=== PATIENT | female | born 1965 | race Caucasian/White ===

== ENCOUNTER 2023-05-03 10:14 | Outpatient (AMB) | payer OTHER, SELFPAY ==
--- NOTE | 2023-05-03 10:37 | MHC.OFFVIS ---
Intake Intake Visit Reasons: low back pain Patient Advocate Required: No Allergies No Known Allergies [No Known Allergies*] Allergy (Unverified 12/10/19 15:20) Assessment & Plan Assessment & Plan (1) Cervical myelopathy: Code(s): G95.9 - Disease of spinal cord, unspecified Plan: This is a 58-year-old female self-referred for evaluation of multiple symptoms. She has had chronic low back pain since 1995 when she was carrying her 1st child. That is gotten progressively worse through the years. She will have pain that radiates down her left leg in an L4 distribution. More recently however, over the last few years she started to develop bilateral hand numbness as well as numbness of her feet. She also reports that she will have urinary in fecal incontinence sporadically. She has to wear adult diapers in order to protect against this. It has been very concerning as it has been going on for number of years. She had a urogynecologist workup and was told that everything was fine. She had a colonoscopy was told everything was okay. She also reports pain radiating down her left arm. She was told years ago she has cervical stenosis but that it was not bad enough to need surgery. She is here today for evaluation of all these issues. She does take morphine and Soma to help with her back pain. PMH: History of diabetes, her last A1c was 6, history of chronic pain, depression, hypertension, high cholesterol, bilateral carpal tunnel surgery. She denies any history of heart attacks, strokes, kidney disorders, bleeding disorders. Social hx: She does not smoke, she quit about a year ago. She quit alcohol 10 years ago. Denies any liver disease or hepatitis related to drinking. Denies any recreational drugs. Medications: Pravastatin, atenolol, metformin, bupropion, duloxetine, gabapentin, Soma, morphine Allergies: None Physical exam: Patient has diffuse weakness on the left side of her body which showed rate as 4-5, right side is normal strength. She has hyperreflexia with Beard's sign bilaterally in the upper extremities, bilateral hyperreflexia in lower extremities as well. Imaging review: She has a lumbar MRI with her today which shows mild degenerative disc disease with a slight spondylolisthesis at L4-5 but no nerve impingement. Impression: 58-year-old female presenting to the office for evaluation of a host of symptoms, most concerning is left arm pain, bilateral hand numbness, foot numbness with incontinence. She has hyperreflexia on her exam so I am going to send her for an urgent cervical MRI to rule out myelopathy. It is well-known SSRIs can cause hyperreflexia, but in light of all of her other symptoms I think we can justify the MRI. Once I have a chance to evaluate her cervical spine, we can focus on her back. She does have a spondylolisthesis at L4-5 grade 1. Eventually we will need to get flexion-extension x-rays on this to evaluate but I need to rule out myelopathy before we can go any further. Thank you for allowing us to care for your patient. The total time spent with this visit with this patient was 45 minutes reviewing history, physical exam, lumbar MRI imaging review, and implementation of treatment plan or further diagnostic testing Ze Hung MD,PhD [facility] Orders: Orders MR cervical spine wo con Today G95.9 - Disease of spinal cord, unspecified Coding Level of Care Code New Pt Level 4 (74026) Diagnoses Cervical myelopathy G95.9
== END 2023-05-03 11:02 | disposition home or self-care (01) ==
PROVIDERS: PCP Nurse Practitioner Family; Visit Provider Physician Assistant
DX: G95.9 Disease of spinal cord, unspecified (principal)
CPT/HCPCS: 99204

== ENCOUNTER → 2023-05-03 10:14 | Outpatient (BNVA) | payer OTHER, SELFPAY | PROVIDERS: PCP Nurse Practitioner Family; Visit Provider Physician Assistant | DX: G95.9 Disease of spinal cord, unspecified (principal) | CPT/HCPCS: 99202 ==

== ENCOUNTER → 2023-06-19 12:56 | Outpatient (BNV) | payer OTHER, SELFPAY | PROVIDERS: PCP Nurse Practitioner Family; Visit Provider Internal Medicine Cardiovascular Disease | DX: R94.31 Abnormal electrocardiogram [ECG] [EKG] (principal) | CPT/HCPCS: 93010 ==

== ENCOUNTER 2023-06-27 07:25 | Day surgery (SDC) | payer OTHER, SELFPAY ==
--- NOTE | 2023-06-19 | ECG_ITS ---
Test Reason : preop Blood Pressure : / mmHG Vent. Rate : 060 BPM Atrial Rate : 060 BPM P-R Int : 170 ms QRS Dur : 074 ms QT Int : 418 ms P-R-T Axes : -01 -09 010 degrees QTc Int : 418 ms Normal sinus rhythm Minimal voltage criteria for LVH, may be normal variant ( R in aVL ) T wave abnormality, consider anterior ischemia Abnormal ECG When compared with ECG of 15-MAY-2018 18:34, Minimal criteria for Inferior infarct are no longer Present T wave inversion now evident in Anterior leads Referred By: Alaina Banks Electronically Signed By:John Menjivar
[2023-06-19 12:15] VITALS: BP 122/72; PULSE 74; RESP 18; O2SAT 98; BMI 35.4
--- NOTE | 2023-06-19 12:40 | P.CONAN_ITS ---
Documented by User: Alaina Banks NP 06/20/23 10:08 HPI - Anesthesia Eval Consult details Narrative: 58yo F for C4-5 Ant Cerv Discectomy w/ fusion, 06/27/23 No recent illness No CP/SOB with minimal activity r/t pain. Able to do one flight of stairs Chronic opiates. Morphine 15mg BID. ARMANDO. No CPAP. Never recommended DM. Metformin only. Does not check BS at home. 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 prescription opiate use Hypersomnia with sleep apnea Hypercholesteremia Former smoker DDD (degenerative disc disease), lumbar Chronic pain syndrome Spinal stenosis in cervical region Cervical radiculopathy Adjustment disorder with mixed emotional features Arthritis History of DVT (deep vein thrombosis) (~1997) Frequent falls Ambulates with cane Numbness and tingling in both hands Elevated cholesterol HTN (hypertension) Depression Chronic pain Diabetes Family History Family history of problems with anesthesia: No Surgical History Surgical History Hx of colonoscopy Hx of hand surgery History of bilateral carpal tunnel release History of Problems with Anesthesia: No Social History Social History Are you a primary reproductive healthcare assistant to a significant other at home: No Do you presently have visiting nurse or other home services: No Patient Tobacco Use Status: Former Tobacco user Use of substances other than those prescribed or required for medical reasons: No Have you been hit, kicked, punched, or otherwise hurt by someone within the past year? If so, by whom?: No Are you DNR?: No Advance Directives: No Advance Directives Information Provided: Yes Advance Directives on File: No Recently lost weight without trying: No Eating poorly because of decreased appetite: No Patient : No : No Poor oral hygiene: Yes (upper dentures full set) Meds Allergies Allergy/AdvReac Type Severity Reaction Status Date / Time No Known Allergies Allergy Verified 06/12/23 16:12 [No Known Allergies*] Home Medications ?Medication ?Instructions ?Recorded ?Confirmed ?Last Taken ?Type atenolol 25 mg tablet 25 mg PO DAILY 06/12/23 06/12/23 Unknown History bupropion HCl 300 mg 24 hr tablet, 300 mg PO DAILY 06/12/23 06/12/23 Unknown History extended release carisoprodol 350 mg tablet 350 mg PO TID 06/12/23 06/19/23 06/27/23 History duloxetine 60 mg capsule,delayed 120 mg PO DAILY 06/12/23 06/12/23 Unknown History release gabapentin 600 mg tablet 1,200 mg PO TID 06/12/23 06/12/23 06/27/23 History metformin 500 mg tablet 500 mg PO DAILY 06/12/23 06/12/23 Unknown History morphine 15 mg tablet,extended 15 mg PO Q12H 06/12/23 06/12/23 06/27/23 History release pravastatin 40 mg tablet 40 mg PO DAILY 06/12/23 06/12/23 Unknown History Exam Height,Weight and Vital Signs: Height 5 ft 4 in Weight 93.44 kg Last Vital Signs Pulse 74 06/19/23 12:15 Resp 18 06/19/23 12:15 BP 122/72 06/19/23 12:15 Pulse Ox 98 06/19/23 12:15 O2 Del Method Room Air 06/19/23 12:15 Pertinent Lab Results Pertinent Lab Results: Lab Results 06/19/23 Range/Units 13:00 WBC 7.4 (4.8-10.8) X10*3/uL RBC 4.14 L (4.20-5.50) X10*6/uL Hgb 13.4 (12.0-16.0) g/dl Hct 39.6 (37.0-47.0) % MCV 95.7 (80.0-98.0) fL MCH 32.4 (27.0-33.0) pg MCHC 33.8 (31.0-35.0) g/dl RDW 12.3 (11.0-16.0) % Plt Count 303 (160-400) X10*3/uL MPV 9.3 L (9.4-12.3) fL Absolute Nucleated RBC 0.000 (0.0-0.012) X10*3/uL Nucleated RBC % (auto) 0.0 (0.0-0.2) /100WBC Sodium 140 (135-145) mmol/L Potassium 4.2 (3.3-5.1) mmol/L Chloride 105 (96-108) mmol/L Carbon Dioxide 28 (22-29) mmol/L Anion Gap 11 L (12-20) BUN 14 (9-16) mg/dL Creatinine 0.89 (0.5-1.4) mg/dL Estim Creat Clear Calc 78.2 Estimated GFR > 60 Random Glucose 107 (60-115) mg/dL Estimat Average Glucose 117 mg/dL Hemoglobin A1c % 5.7 (<6.0) % Calcium 9.3 (8.4-10.2) mg/dL Narrative Narrative: EKG 05/2023 Vent. Rate : 060 BPM Atrial Rate : 060 BPM P-R Int : 170 ms QRS Dur : 074 ms QT Int : 418 ms P-R-T Axes : -01 -09 010 degrees QTc Int : 418 ms Normal sinus rhythm Minimal voltage criteria for LVH, may be normal variant ( R in aVL ) T wave abnormality, consider anterior ischemia Abnormal ECG When compared with ECG of 15-MAY-2018 18:34, Minimal criteria for Inferior infarct are no longer Present T wave inversion now evident in Anterior leads Reviewed with Dr Kruse Airway Mallampati Class: II TM Dist: >3cm Neck ROM: Limited Denture: Upper Loose/Missing/Broken Teeth: Yes (All lower teeth remain and stable) Heart: RRR Lungs: CTAB Assessment and Plan Assessment Anesthesia Assessment: Anesthesia Plan Discussed and PAT Visit Final Anesthetic Review Family History of Problems with Anesthesia: No History of Problems with Anesthesia: No Documented by User: Henrique Kruse MD 06/27/23 08:11 [facility] Past Medical History Medical History Weakness Vitamin B12 deficiency Sleepwalking disorder RBD (REM behavioral disorder) Post herpetic neuralgia Sleep apnea Obese Back pain long term care phlebotomist prescription opiate use Hypersomnia with sleep apnea Hypercholesteremia Former smoker DDD (degenerative disc disease), lumbar Chronic pain syndrome Spinal stenosis in cervical region Cervical radiculopathy Adjustment disorder with mixed emotional features Arthritis History of DVT (deep vein thrombosis) (~1997) Frequent falls Ambulates with cane Numbness and tingling in both hands Elevated cholesterol HTN (hypertension) Depression Chronic pain Diabetes Surgical History Surgical History Hx of colonoscopy Hx of hand surgery History of bilateral carpal tunnel release Social History Social History Are you a primary reproductive healthcare assistant to a significant other at home: No Do you presently have visiting nurse or other home services: No Patient Tobacco Use Status: Former Tobacco user Use of substances other than those prescribed or required for medical reasons: No Have you been hit, kicked, punched, or otherwise hurt by someone within the past year? If so, by whom?: No Are you DNR?: No Advance Directives: No Advance Directives Information Provided: Yes Advance Directives on File: No Recently lost weight without trying: No Eating poorly because of decreased appetite: No Patient : No : No Poor oral hygiene: Yes (upper dentures full set) Meds Allergies Allergy/AdvReac Type Severity Reaction Status Date / Time No Known Allergies Allergy Verified 06/12/23 16:12 [No Known Allergies*] Home Medications ?Medication ?Instructions ?Recorded ?Confirmed ?Last Taken ?Type atenolol 25 mg tablet 25 mg PO DAILY 06/12/23 06/12/23 Unknown History bupropion HCl 300 mg 24 hr tablet, 300 mg PO DAILY 06/12/23 06/12/23 Unknown History extended release carisoprodol 350 mg tablet 350 mg PO TID 06/12/23 06/19/23 06/27/23 History duloxetine 60 mg capsule,delayed 120 mg PO DAILY 06/12/23 06/12/23 Unknown History release gabapentin 600 mg tablet 1,200 mg PO TID 06/12/23 06/12/23 06/27/23 History metformin 500 mg tablet 500 mg PO DAILY 06/12/23 06/12/23 Unknown History morphine 15 mg tablet,extended 15 mg PO Q12H 06/12/23 06/12/23 06/27/23 History release pravastatin 40 mg tablet 40 mg PO DAILY 06/12/23 06/12/23 Unknown History Assessment and Plan Final Anesthetic Review NPO: Yes ASA Class: III Final Preanesthetic Review: No Changes in Pt Med Stat, Meds/Allgs Chart Reviewed, Consent Obtained/Reviewed and Anes Risks/Benef Reviewed Patient Risk: Intermediate Procedure Risk: Intermediate Assessment/Block/Sedation in SS: Assess/Block/Sedation-SS Anesthetic Plan Anesthetic Plan: GA Disposition: Standard PACU
[2023-06-19 14:17] LABS: Estimated Average Glucose 117 mg/dL; Hemoglobin A1c % 5.7 % (<6.0)
[2023-06-19 14:20] LABS: Hematocrit 39.6 % (37.0-47.0); Hemoglobin 13.4 g/dl (12.0-16.0); Mean Corpuscular HGB Conc 33.8 g/dl (31.0-35.0); Mean Corpuscular Hemoglobin 32.4 pg (27.0-33.0); Mean Corpuscular Volume 95.7 fL (80.0-98.0); Mean Platelet Volume 9.3 fL (9.4-12.3); Platelet Count 303 X10*3/uL (160-400); Red Blood Count 4.14 X10*6/uL (4.20-5.50); Red Cell Distribution Width 12.3 % (11.0-16.0); White Blood Count 7.4 X10*3/uL (4.8-10.8)
[2023-06-19 14:37] LABS: Anion Gap 11 (12-20); Blood Urea Nitrogen 14 mg/dL (9-16); Calcium 9.3 mg/dL (8.4-10.2); Carbon Dioxide 28 mmol/L (22-29); Chloride 105 mmol/L (96-108); Creatinine Clr Calc Pharmacy 78.2; Estimated Glomerular Filt Rate > 60; Glucose Random 107 mg/dL (60-115); Potassium 4.2 mmol/L (3.3-5.1); Sodium 140 mmol/L (135-145)
[2023-06-27] VITALS (9 sets, daily range): BP systolic 105–152; BP diastolic 64–88; PULSE 75–80; RESP 10–18; TEMP 36.4–36.6; O2SAT 93–100; BMI 36.6
--- NOTE | ~2023-06-27 | FL_ITS ---
EXAMINATION: XR FLUOROSCOPY WITH IMAGES CLINICAL INFORMATION: C4-5 ACDF COMPARISON: None available. TECHNIQUE: Fluoroscopy Supervised By: Carlos Alberto. Fluoroscopy Time: 5.3 seconds. Cumulative Dose: 0.3 mGy. DAP: 0.1 Gycm2. Images: 2. FINDINGS: Images demonstrate ACDF hardware at C4-5. FL/FL guidance in OR IMPRESSION: Intraoperative fluoroscopy guidance for cervical spine surgery
--- NOTE | 2023-06-27 07:04 | P.HPSUR_ITS ---
Pre-Procedural Eval Section A - 24 Hr Update-Section A only Date of Service: 06/27/23 The patient is an INPATIENT: No Changes since office visit: No Cold of Flu in the past 2 weeks, No New Medical Problems, No Changes in Medication and No Patient answered all questions The patient has been examined within 24 hours of the surgical procedure. The History & Physical has been completed within 30 days and I have reviewed it.: No Section B - Complete if H&P > 30 days Chief Complaint: Disease of spinal cord, Allergies: Allergies Allergy/AdvReac Type Severity Reaction Status Date / Time No Known Allergies Allergy Verified 06/12/23 16:12 [No Known Allergies*] Review of Systems Sugical H&P ROS: Negative: Constitution, Cardiovascular, Respiratory, Neurological, Psychiatric, Hem-Onc, Allergic/Immunologic, Gastrointestinal, Genitourinary, Musculoskeletal, Integumentary, Endocrine and Eyes/Ears/Nose/Th roat Exam Surgical H&P Exam: Not Evaluated: HEENT, Not Evaluated: Heart, Not Evaluated: Lungs, Not Evaluated: Extremities, Not Evaluated: Abdomen, Not Evaluated: Skin and Not Evaluated: Neurological Plan Diagnosis/Plan: Unchanged C4-5 ACDF Time Spent With Patient Time: Total time managing care of this patient today _6___ minutes.
[2023-06-27 07:50] LABS: Glucose, Whole Blood 151 mg/dL (60-115)
[2023-06-27] MEDS: Lactated Ringers 1,000 ML 100 ML IVCONT (08:14)
[2023-06-27] MEDS: methocarbamoL 750 MG TABLET PO (08:14)
--- NOTE | 2023-06-27 10:18 | PM.DS ---
DS: Providers Provider Date of Service: 06/27/23 Date of discharge: 06/27/23 Primary care physician: Kaila Bonds NP Admitting clinician: Woody Hung DS: Diagnosis Discharge Diagnosis (1) Cervical myelopathy: Status: Acute DS: Summary Time Attestation Discharge Coordination Time (in mins): 5 Quality: Safe Use of Opioids Does Pt have an Active Cancer Diagnosis on the Problem List?: No Quality: Stroke Does the patient have a stroke diagnosis?: No Physical Exam Vital Signs: Vital Signs: Last Vital Signs Temp 97.8 F 06/27/23 07:54 Pulse 75 06/27/23 07:54 Resp 18 06/27/23 07:54 BP 105/67 06/27/23 07:54 Pulse Ox 96 06/27/23 07:54 O2 Del Method Room Air 06/27/23 07:54 BMI result Body Mass Index 36.6 DS: Data Data Completed and Pending Labs on day of discharge: Laboratory Results - last 24 hr 06/27/23 07:46 POC Glucose 151 H Discharge Plan Discharge Patient Disposition: Home, Self-Care Referrals: Kaila Bonds NP [Primary Care Provider] - 1 Week Discharge Medications: New docusate sodium [Colace] 100 mg capsule 100 mg PO BID Qty: 20 0RF oxycodone 5 mg tablet 5 mg PO Q4H PRN (Reason: pain) Qty: 30 0RF Rx Instructions: Partial Fill upon patient request. Continued metformin 500 mg tablet 500 mg PO DAILY gabapentin 600 mg tablet 1,200 mg PO TID pravastatin 40 mg tablet 40 mg PO DAILY atenolol 25 mg tablet 25 mg PO DAILY morphine 15 mg Tablet Extended Release 15 mg PO Q12H bupropion HCl 300 mg tablet extended release 24 hr 300 mg PO DAILY duloxetine 60 mg capsule,delayed release(DR/EC) 120 mg PO DAILY carisoprodol 350 mg tablet 350 mg PO TID Discharge Orders: Discharge Order (Routine); Ordered 06/27/23 Ordered By: Ze Wilson Diet: Advance to usual diet Activity on Discharge: As tolerated Activity Restrictions/Additional Instructions: After your spinal surgery we ask you to observe the following restrictions/guidelines: Activity: It is normal to feel some discomfort as you increase your activity, but that will improve with time. We ask you avoid heavy lifting or acitivities that cause pain. As a general rule, 8lbs is a safe limit for lifting right after surgery. Walk as much as you feel comfortable but not to exhaustion. You will feel extra tired the first few days after surgery. Stay well hydrated. It is OK to walk up and down stairs You may return to driving when you are off narcotics (such as vicodin, oxycodone, dilaudid, etc), and you are back to normal functional capacity. If you have any concerns please check with office before driving. Return to work is specific to each patient and each surgery, so please speak with your doctor/PA at first follow up. Please bring paperwork such as FMLA at that time if you need it filled out. Medications: For optimum pain control, it is best to start with a combination of 500 mg of Tylenol every 4 hours with 600 mg of Motrin every 8 hours, and use narcotics as needed in between for breakthrough pain. We cannot give you any pain medication because you just filled a rx for morphine instant release, so you will have to use that for post op pain if needed If you are on a narcotic, it is a good idea to take a stool softener such as colace or senna to avoid constipation If you take blood thinner such as aspirin, Plavix, Coumadin, Effient, Eliquis etc for conditions such as Afib, DVT, Pulmonary embolus, coronary disease, stents etc please speak with your surgeon about specific details as to when you can resume these medications. You can resume NSAIDs on post op day 1 (eg: Motrin, Naproxen, etc). Follow up: Please call the office, , after surgery to arrange a 3 week follow up for wound check. Wound Care: You may remove your dressing on the first day after surgery. ?You may ?leave open to air. Please do not remove the steri strips underneath. they will fall off on their own in one week. IT IS NORMAL FOR THE WOUND TO OOZE OR BE BLOODY FOR A FEW DAYS AFTER SURGERY. ?IF THIS HAPPENS JUST PLACE NEW DRESSING OVER IT TO AVOID STAINING CLOTHES. You may shower on post op day # 1 We ask that you do not let the water soak the wound. If it does get wet, just towel dry lightly. Please do not scrub your incision or place any type of chemical/ointment on the wound. No tub baths, pools or jacuzzis for one month. If you have any leaking or redness from your wound, or fevers, please call office Print Language: British
--- NOTE | 2023-06-27 11:11 | W.PM.OPN ---
Operative Note Operative Note Date of Service: 06/27/23 Narrative: Preoperative Diagnosis: Cervical myelopathy and radiculopathy Procedure: C4-C5 Anterior discectomy, arthrodesis and implantation cage ; C4-C5 anterior instrumentation ; local autograft; microscope Informed Consent was obtained for this operation. I have explained the nature, purpose and benefits of the operation. I have discussed the risks and benefit of the operation including possible complications or adverse events with patient/family. Alternative(s) were discussed with the patient with their relative benefits and risks as well as the consequences of not accepting the operation were included in obtaining consent. Surgeon: KAREN ACOSTA MD, PHD Procedure Assisted By: giancarlo Russell Description of Procedure: This patient is suffering from cervical myelopathy and left cervical radiculopathy. She was offered an anterior diskectomy and fusion C4-C5 for spinal cord compression and bilateral C5 nerve root compression. The procedure complications were explained. The patient was consented. The patient was brought to the operating room and endotracheally intubated. The patient was put in supine position with slight extension of the neck. Prep and drape was done followed by timeout. A mid cervical incision was made followed by opening of the platysma. The prevertebral fascia was reached following the natural planes while the physician assistant reading teacher provided manual retraction. The prevertebral fascia was opened to expose the disc space. A spinal needle was placed in the disk space to confirm the correct level with xray. The longus colli muscles were released bilaterally and a self retaining retractor was inserted. Two [place] pins were placed in the C4 and C5 vertebral bodies and distraction was give over the interspace. The discectomy was completed toward the posterior annulus of the disc. The microscope was brought in. The remainder of the discectomy was completed. The posterior ligament was opened and resected to expose the underlying dura. Osteophytes were resected from the body of C4 and C5 to decompress the spinal cord and saved for autograft. Bilateral foraminotomies were done. The endplates were prepared after which a 6 mm cage filled with autograft was inserted into the disc space. A separate attached plate was locked down with 2 x 12 mm screws as anterior instrumentation. Final x-rays in AP and lateral projection showed a satisfactory position of the implant. The physician assistant reading teacher took over. The [place] Ward pin was removed. Hemostasis was done. He closed the incision in 2 layers with a 3-0 Vicryl. Steri-Strips used to approximate incision. An OpSite with Tegaderm was used to cover the incision. All sponge and needle counts were correct. Patient was extubated and transported in stable is to recovery room. Anesthesia: General Estimated Blood Loss (ml): 10 mL Duration of Surgery: 45 minutes Postoperative Plan: Discharge home Complications: None
[2023-06-27] MEDS: oxyCODONE HCl Immed Release 5 MG TABLET PO (11:34)
[2023-06-27] MEDS: HYDROmorphone HCl 0.5 MG/0.5 ML SYRINGE IVPUSH ×2 (11:35→11:53)
== END 2023-06-27 13:50 | disposition home or self-care (01) ==
PROVIDERS: Nurse Practitioner; PCP Nurse Practitioner Family; Visit Provider Neurological Surgery
PROC: (CPT 22551; principal; 2023-06-27 09:30)
DX: G95.9 Disease of spinal cord, unspecified (principal); M48.02 Spinal stenosis, cervical region; M54.12 Radiculopathy, cervical region; G89.29 Other chronic pain; M54.50 Low back pain, unspecified; I10 Essential (primary) hypertension; E11.9 Type 2 diabetes mellitus without complications; E78.00 Pure hypercholesterolemia, unspecified; F32.A Depression, unspecified; Z79.891 Long term (current) use of opiate analgesic; Z79.899 Other long term (current) drug therapy; Z79.84 Long term (current) use of oral hypoglycemic drugs; Z87.891 Personal history of nicotine dependence
CPT/HCPCS: 22551; 22853; 20936; 22845; 36415; 80048; 82947; 83036; 85027; 93005; C1713; J0131; J0690; J1170; J2250; J2704; J3010

== ENCOUNTER → 2023-06-27 07:25 | Outpatient (BNV) | payer OTHER, SELFPAY | PROVIDERS: PCP Nurse Practitioner Family; Visit Provider Neurological Surgery | DX: M50.10 Cervical disc disorder with radiculopathy, unspecified cervical region (principal) | CPT/HCPCS: 20936; 22551; 22845; 22853; 99499 ==

== ENCOUNTER 2023-07-18 09:49 | Outpatient (AMB) | payer OTHER, SELFPAY ==
--- NOTE | 2023-07-18 09:55 | A.SPINEOV_ITS ---
Intake Visit Reasons: 1st post op Intake Note: Ms. Ibarra is here today for 1st post-op appointment. Licensed Occupational Therapist Required: No Allergies No Known Allergies [No Known Allergies*] Allergy (Verified 07/18/23 09:56) Assessment & Plan Assessment & Plan (1) S/P cervical spinal fusion: Code(s): Z98.1 - Arthrodesis status Category: Surgical Plan Procedure: C4-5 ACDF Dorothea comes in today for her 1st postoperative visit. She reports that she does feel better than she did preoperatively, however still has quite a bit of posterior neck pain. She also continues to have some radiculopathy into her left upper extremity, however is unsure if this is confounded by her left shoulder injury/issue. She asked several questions regarding postoperative healing course which I answered to the best of my ability. We discussed some restrictions including weight limits and activities. Overall she appears to be healing well but is likely dealing with quite a bit of postoperative inflammation. No new neurological deficits. Patient is able to ambulate well, rises from a seated position without difficulty. Incision site is closed, well healing, with no signs of drainage. We will follow-up with the patient in 6 weeks for her 2nd postoperative visit. At that time we will get x-rays to review with the patient. Wesly Hung MD,PhD [facility] Coding Level of Care Code Global (92990) Diagnoses S/P cervical spinal fusion Z98.1
== END 2023-07-18 10:21 | disposition home or self-care (01) ==
PROVIDERS: PCP Nurse Practitioner Family; Visit Provider Physician Assistant
DX: Z98.1 Arthrodesis status (principal)
CPT/HCPCS: 99024

== ENCOUNTER → 2023-07-18 09:49 | Outpatient (BNVA) | payer OTHER, SELFPAY | PROVIDERS: PCP Nurse Practitioner Family; Visit Provider Physician Assistant | DX: Z48.89 Encounter for other specified surgical aftercare (principal); Z98.1 Arthrodesis status | CPT/HCPCS: 99212 ==

== ENCOUNTER 2023-08-28 13:10 | Outpatient (REF) | payer OTHER, SELFPAY | END 2023-08-28 13:11 | disposition home or self-care (01) | LOC: HO.HOSX 13:10 | PROVIDERS: Visit Provider Physician Assistant | DX: Z13.89 Encounter for screening for other disorder (principal) ==

== ENCOUNTER 2023-09-09 08:49 | Outpatient (AMB) | payer OTHER, SELFPAY ==
--- NOTE | 2023-09-09 08:59 | HO.SPINEOV ---
Intake Visit Reasons: 2nd post op with xrays Intake Note: Ms. Ibarra is here today for 2nd post op with xrays. Horse Race Timer Required: No Allergies No Known Allergies [No Known Allergies*] Allergy (Verified 07/18/23 09:56) Assessment & Plan Assessment & Plan (1) S/P cervical spinal fusion: Code(s): Z98.1 - Arthrodesis status Category: Surgical Plan Dorothea is a pleasant 58-year-old female who comes in today for a subsequent follow-up visit after having a C4-5 ACDF completed for cervical myelopathy. She reports she has been healing very well since her surgery, and states she has had resolution of many of her initial presentation symptoms. She has had no issues with incontinence since her surgery, reports that the numbness/tingling in her bilateral hands has significantly improved, and states that her left-sided weakness feels much better than it previously did. We discussed cervical instrumentation, postoperative healing course, and subsequent follow-up visits. I answered all of her questions to the best of my ability. On exam, the patient's anterior incision site is closed and well healed. She continues to exhibit bilateral Beard's and hyperreflexia, but these are not expressly expected to resolve. She continues to ambulate with the assistance of 4 pronged cane. Yarelis reported she would like to follow up with us again in 2 months to discuss her low back concerns. After reviewing some of her previous notes it appears she had a lumbar spondylolisthesis which did not appear particularly concerning. I will review her imaging during her next visit and see if there is anything that could correlate with her symptoms. Wesly Hung MD,PhD [facility] Orders: Orders XR cervical spine 4V Today Z98.1 - Arthrodesis status Coding Level of Care Code Global (06196) Diagnoses S/P cervical spinal fusion Z98.1
== END 2023-09-09 09:24 | disposition home or self-care (01) ==
PROVIDERS: PCP Nurse Practitioner Family; Visit Provider Physician Assistant
DX: Z98.1 Arthrodesis status (principal)
CPT/HCPCS: 99024

== ENCOUNTER → 2023-09-09 08:49 | Outpatient (BNVA) | payer OTHER, SELFPAY | PROVIDERS: PCP Nurse Practitioner Family; Visit Provider Physician Assistant | DX: Z98.1 Arthrodesis status (principal) ==

== ENCOUNTER 2023-09-09 08:50 | Outpatient (REF) | payer OTHER, SELFPAY ==
--- NOTE | ~2023-09-09 | XR_ITS ---
EXAMINATION: XR CERVICAL SPINE CLINICAL INFORMATION: Status post arthrodesis COMPARISON: None available. TECHNIQUE: 3 views of the cervical spine were obtained. FINDINGS: 3 lateral views of cervical spine reveals no instability on flexion and extension views of well-positioned arthrodesis at the level of C4-C5 there is narrowing of C6-C7 and C7-T1 intervertebral disc space. Pedicles are preserved. Soft tissues unremarkable. XR/XR cervical spine 4V IMPRESSION: Well-positioned hardware
== END 2023-09-09 08:51 | disposition home or self-care (01) ==
LOC: HO.HOSX 08:50
PROVIDERS: Visit Provider Physician Assistant
DX: Z48.89 Encounter for other specified surgical aftercare (principal); Z98.1 Arthrodesis status
CPT/HCPCS: 72050; 99212

== ENCOUNTER 2023-11-12 13:16 | Outpatient (AMB) | payer OTHER, SELFPAY ==
--- NOTE | 2023-11-12 13:19 | HO.SPINEOV ---
Intake Visit Reasons: 3rd post op Intake Note: Ms. Ibarra is here for her 3rd post-op visit. Management Information Systems Director Required: No Allergies No Known Allergies [No Known Allergies*] Allergy (Verified 11/12/23 13:29) Assessment & Plan Assessment & Plan (1) S/P cervical spinal fusion: Code(s): Z98.1 - Arthrodesis status Category: Medical Plan Dorothea is a pleasant 58-year-old female who comes in today for a subsequent follow-up visit after having a C4-5 ACDF completed in June of this year. To recap, she was initially referred to our office for her low back pain but was found to be myelopathic on exam. A cervical MRI was then ordered and severe compression was found in the cervical spine. Unfortunately, since her surgery Yarelis is reported continued radicular pain in her left upper extremity shooting down from her neck into her left shoulder/triceps area. In addition to this she reports shooting pains down the dorsal aspect of her forearm into her wrist/hand. Dorothea was doing much better during her last office visit, but states she has begun falling again in his concerned that she is regressing. In addition to this, Dorothea reports that she has had severe low back pain with radiculopathy since her initial consult and would like to have her back issues addressed. When describing the shooting radicular pain she runs her hand over her left lateral/anterior thigh, over her left knee, into her left medial calf, to the top of her left foot. She has been on morphine, fentanyl, oxycodone, Percocet, and gabapentin all in an effort to treat her back pain. She no longer takes any of these medications (aside from the gabapentin) as she feels they were not helpful and only made her feel intoxicated. She acknowledges that her cervical issues are continuing, but is primarily expressing concerns regarding her terrible back pain. She feels as though her quality of life has been severely diminished as a result of her low back pain, in his seeking any possible solution we may have to aid with this. She has had a plethora of cortisone injections in her low back, completed at the pain management clinic on [facility] in [facility]. She has also been to physical therapy several times for this. On examination, the patient has 4/5 strength with plantar flexion/knee extension/knee flexion. She has 5/5 strength with dorsiflexion and hip flexion. Her upper extremity exam is 5/5. She continues to have bilateral Beard's. (-) clonus, (-) hyperreflexia, (-) Babinski's bilaterally, (-) straight leg raise. I would like to do a few things in order to best determine the route/next steps for Dorothea. I would like for her to obtain the MRI disc of her lumbar spine and drop it off at the office so we can review this again. I would also like to send her for a repeat cervical MRI she continues to have radicular pain and some myelopathic reflexes on examination. It is also quite concerning that she has begun to have balance issues. In addition to this I will be having her medical laboratory technologist obtain her injection records for the lumbar spine from the pain management Clinic noted above. After I am able to review her MRI I will discuss her case with Dr. Hung and call her thereafter. Wesly Hung MD,PhD [facility] Orders: Orders MR cervical spine wo con Today Z98.1 - Arthrodesis status Coding Level of Care Code Est Pt Level 4 (50634) Diagnoses S/P cervical spinal fusion Z98.1
== END 2023-11-12 14:08 | disposition home or self-care (01) ==
PROVIDERS: PCP Nurse Practitioner Family; Visit Provider Physician Assistant
DX: Z98.1 Arthrodesis status (principal)
CPT/HCPCS: 99214

== ENCOUNTER → 2023-11-12 13:16 | Outpatient (BNVA) | payer OTHER, SELFPAY | PROVIDERS: PCP Nurse Practitioner Family; Visit Provider Physician Assistant | DX: Z98.1 Arthrodesis status (principal) | CPT/HCPCS: 99212 ==

== ENCOUNTER 2023-12-25 07:26 | Outpatient (REF) | payer OTHER, SELFPAY ==
--- NOTE | ~2023-12-25 | MR_ITS ---
EXAMINATION: MR CERVICAL SPINE WITHOUT CONTRAST CLINICAL INFORMATION: Postoperative medial neurological symptoms with continued myelopathic reflexes COMPARISON: Cervical spine x-ray on 09/09/2023 TECHNIQUE: MRI of the cervical spine was obtained using routine sequences without contrast. FINDINGS: The visualized cervical vertebrae are intact with normal alignment. No focal bone lesion with abnormal signal can be seen. Evaluation of the intervertebral discs show: C2/C3: Intervertebral disc height is normal, with normal T2 signal. No focal disc herniation is seen. Bilateral C2-C3 neural foramina are patent. Bilateral apophyseal joints are intact with normal alignment. C3/C4: Intervertebral disc height is normal, with normal T2 signal. No focal disc herniation is seen. Bilateral C3-C4 neural foramina are patent. Bilateral apophyseal joints are intact with normal alignment. C4/C5: ACDF, interbody spinal fusion, fixation with integrated interbody fusion device. Bilateral C4-C5 neural foramina are severely stenosed. There is moderate spinal stenosis with AP diameter of the spinal canal reduced to 8.8 mm. Bilateral apophyseal joints are intact with normal alignment. C5/C6: Intervertebral disc height is normal, with normal T2 signal. Mild posterior disc protrusion is seen. Bilateral C5-C6 neural foramina are markedly stenosed. There is moderate spinal stenosis with AP diameter of the spinal canal reduced to 8.1 mm. Bilateral apophyseal joints are intact with normal alignment. C6/C7: Intervertebral disc height is markedly decreased, with moderate loss of T2 signal. Mild posterior disc protrusion is seen. Bilateral C6-C7 neural foramina are markedly stenosed. There is mild spinal stenosis with AP diameter of the spinal canal reduced to 9.1 mm. Bilateral apophyseal joints are intact with normal alignment. C7/T1: Intervertebral disc height is normal, with normal T2 signal. No focal disc herniation is seen. Bilateral C7-T1 neural foramina are patent. Bilateral apophyseal joints are intact with normal alignment. Cervical spinal cord is normal in position and signal. MR/MR cervical spine wo con IMPRESSION: 1. ACDF, interbody spinal fusion, fixation with integrated interbody fusion device at C4-C5. 2. Moderate spinal stenosis at C4-C5 and C5-C6. 3. Mild spinal stenosis at C6-C7. 4. Marked bilateral neural foraminal stenosis at C4-C5, C5-C6 and C6-C7. Electronically signed by: Rosa Maria Jones MD 12/25/2023 03:26 PM EDT RP
== END 2023-12-25 07:27 | disposition home or self-care (01) ==
LOC: HO.MRI 07:26
PROVIDERS: PCP Nurse Practitioner Family; Visit Provider Physician Assistant
DX: Z98.1 Arthrodesis status (principal)
CPT/HCPCS: 72141

== ENCOUNTER 2023-12-26 09:59 | Outpatient (REF) | payer OTHER, SELFPAY | END 2023-12-26 10:00 | disposition home or self-care (01) | LOC: HO.HOSX 09:59 | PROVIDERS: Visit Provider Physician Assistant | DX: Z13.89 Encounter for screening for other disorder (principal) ==

== ENCOUNTER 2024-01-13 10:44 | Outpatient (REF) | payer OTHER, SELFPAY | END 2024-01-13 10:45 | disposition home or self-care (01) | LOC: HO.HOSX 10:44 | PROVIDERS: PCP Nurse Practitioner Family; Visit Provider Physician Assistant | DX: M43.10 Spondylolisthesis, site unspecified (principal); M54.50 Low back pain, unspecified | CPT/HCPCS: 72110; 99212 ==

== ENCOUNTER 2024-01-13 10:44 | Outpatient (AMB) | payer OTHER, SELFPAY ==
--- NOTE | 2024-01-13 11:05 | A.SPINEOV_ITS ---
Intake Visit Reasons: [place] [facility] [place] Int[place] Note: Mrs. Ibarra is here to F/u on her xrays. Sergeant Of Corrections Required: No Allergies No Known Allergies [No Known Allergies*] Allergy (Verified 11/12/23 13:29) Assessment & Plan Assessment & Plan (1) Lumbago: Code(s): M54.50 - Low back pain, unspecified Category: Medical Plan Dorothea comes in today for a subsequent follow-up visit after having a C4-5 ACDF completed by our service. To recap during her last office visit she wished to address her low back pain. When describing her pain she states that it starts in her low back then travels down her left lateral/anterior thigh, over her left knee, into her left medial calf, to the top of her left foot. She had an MRI completed at [facility] this year, which showed significant facet hypertrophy & degeneration in the lumbar spine, with a small listhesis seen at L4-5. The x-ray imaging confirmed slight accentuation of the lithesis with flexion / extension. We attempted to obtain her records from [facility] pain management, who have not responded to us and have not sent her records. We discussed the spectrum of treatment options. I do not believe she requires any neurosurgical intervention in her lumbar spine and would most benefit from pain management interventions. We had Dr. Syed in the office seeing patients today, and he was able to review the patient's MRI and meet her. He is going to have the patient go to [facility] pain management in person and get a procedure list to review what interventions she has had in the past. He tentatively discussed the possibility of stimulation versus denervation to help treat her pain. I placed a referral for his office and she will be following up with him in regards. In addition to this, Yarelis continues to report issues with neck pain. She feels her pain has stayed the same with little improvement since her surgery. I did review her cervical MRI which shows evidence of degeneration below her level of fusion (C5-6). Again her main complaint at this time is her low back not her neck. I encouraged her that she may continue to heal all the way up to 1 year out from surgery and should follow-up with Dr. Hung in the next few months if she continues to have cervical neck pain and would like to discuss the possibility of subsequent surgery. Due to her lack of overall improvement from the notably worst level at C4-5 I am not sure if subsequent surgery would provide her any significant relief. This would be better evaluated by the attending neurosurgeon. Wesly Hung MD,PhD [facility] Orders: Referrals Pain Management Referral M54.50 - Low back pain, unspecified Coding Level of Care Code Est Pt Level 3 (56312) Diagnoses Lumbago M54.50
== END 2024-01-13 12:08 | disposition home or self-care (01) ==
PROVIDERS: PCP Nurse Practitioner Family; Visit Provider Physician Assistant
DX: M54.50 Low back pain, unspecified (principal)
CPT/HCPCS: 99213

== ENCOUNTER 2024-11-13 10:09 | Outpatient (AMB) | payer OTHER, SELFPAY ==
--- OUTSIDE RECORDS SUMMARY | 2024-11-13 10:13 | XMS_ITS | Clinical Summary ---
Author Organization [facility] Address [address] [place] [address] Phone Care Team Providers Care Cath Lab Radiological Technologist Name Role Phone Alfredo Wynne MD Primary Care Provider [phone] Allergies Active Allergy Reactions Criticality Noted Date Comments Fentanyl 01/29/2019 Does not like the way it makes her feel, was topical delivery, patch Medications atenolol (TENORMIN) 25 MG tablet Take 25 mg by mouth daily. Active Ca cit-D3-mag#11-z atd-goyn-rbg-iam r (CALTRATE 600+D) 600 mg calcium- 800 unit-50 mg Tab Take 1 tablet by mouth daily. Active DULoxetine (CYMBALTA) 60 MG capsule Take 60 mg by mouth daily. Active gabapentin (NEURONTIN) 600 MG tablet Take 600 mg by mouth 3 (three) times a day. Active metFORMIN (GLUCOPHAGE) 1000 MG tablet Take 1,000 mg by mouth 2 (two) times a day with meals. Active multivitamins capsule Take 1 capsule by mouth daily. Active omeprazole (PRILOSEC) 20 mg TbEC Take 20 mg by mouth daily before breakfast. Active pravastatin (PRAVACHOL) 40 MG tablet Take 40 mg by mouth daily. Active carisoprodol (SOMA) 350 MG tablet Take 350 mg by mouth 3 (three) times a day as needed. Active cyanocobalamin, vitamin B-12, 100 MCG tabletIndicatio ns:unsure of exact dosage Take 100 mcg by mouth daily. Indications: unsure of exact dosage Active cholecalciferol (VITAMIN D3) 25 MCG (1,000 unit) tablet Take 1,000 Units by mouth daily. Active morphine (MSIR) 15 MG tablet Take 15 mg by mouth every 4 (four) hours as needed for pain (specific location in comments). {PARTIAL FILL:61438} Active Social History Tobacco Use Types Packs/Day Years Used Date Smoking Tobacco: Former Cigarettes 1 20 Smokeless Tobacco: Never Alcohol Use Standard Drinks/Week Comments Not Currently 0 (1 standard drink = 0.6 oz pur e alcohol) Education Answer Date Recorded Are you interested in more education? Not on troy e 07/20/2022 Are you concerned about learning? Not on file 07/20/2022 No 07/20/2022 No 07/20/2022 Digital Access Answer Date Recorded No 08/21/2022 No 08/21/2022 No 08/21/2022 Reliable internet access at home? Not on file 08/21/2022 Device with a working camera? Not on file Comments No Sex and Gender Information Value Date Recorded Sex Assigned at Not on file Legal Sex Female 12:49 PM EDT Gender Identity Not on file Sexual Orientation Not on file Last Filed Vital Signs Vital Sign Reading Time Taken Comments Blood Pressure 128/75 02/03/2019 8:12 AM EST Pulse 82 02/03/2019 7:06 AM EST Temperature 36.2 C (97.2 F) 02/03/2019 7:06 AM EST Respiratory Rate 16 02/03/2019 8:12 AM EST Oxygen Saturation 97% 02/03/2019 8:12 AM EST Inhaled Oxygen Concentration - - Weight 103 kg (227 lb) 01/29/2019 10:16 AM EST Height 162.6 cm (5' 4 ) 01/29/2019 10:16 AM EST Body Mass Index 38.96 01/29/2019 10:16 AM EST Plan of Treatment Health Maintenance Due Date Last Done Comments Adult Td,Tdap Booster 1965 CREATININE LEVEL 1967 LIPID PANEL 1967 DEPRESSION SCREENING 1979 SMOKING Hx and SMOKELESS TOB ACCO SCREENING 01/31/1980 HEPATITIS C SCREENING 1985 HIV ONE-TIME SCREENING (18-6 5 YEARS) 1985 PAP SMEAR 01/31/1988 MAMMOGRAM 2007 COLOGUARD 01/31/2012 FIT TEST 01/31/2012 FOBT 01/31/2012 SIGMOIDOSCOPY 01/31/2012 VIRTUAL COLONOSCOPY 01/31/2012 PNEUMOCOCCAL VACCINES (50+ y ears) (1 of 1 - PCV) 2017 ZOSTER VACCINES (2 of 2) 01/22/2018 11/27/2017 COVID-19 VACCINE (2 - 2023-2 5 season) 2023 06/15/2020 COLONOSCOPY 02/03/2029 02/03/2019 COLORECTAL CANCER SCREENING 02/03/2029 HEPATITIS A VACCINES Aged Out No long er eligible based on patient's age to complete this topic HIB VACCINES Aged Out No longer eligi ble based on patient's age to complete this topic MENINGOCOCCAL VACCINES (ACWY) Aged Out No longer eligible based on patient's age to complete this topic MENINGOCOCCAL VACCINES (B) Aged Out N o longer eligible based on patient's age to complete this topic Medical Devices Not on file Procedures Procedure Name Priority Date/Time Associated Diagnosis Comments ENDOSCOPY, COLON 02/03/2019 7:15 AM EST from Last 3 Months or Most Recently Relevant to Health Maintenance Results * ENDOSCOPY, COLON (02/03/2019 7:15 AM EST) Narrative Transcriptions Hector Arellano MD - 02/03/2019 7:15 AM EST Patient Name: Dorothea Ibarra Attending MD:: HECTOR ARELLANO MD Procedure Date: 02/03/2019 7:15 AM Date of : 1965 Age: 54 Admit Type: Outpatient Gender: Female Room: [place] [address] Referring MD: Alfredo Wynne MD Exam Type: Colonoscopy Indications: Screening for colorectal malignant neoplasm, This isthe patient's first colonoscopy Medications: Monitored Anesthesia Care Procedure: Informed consent was obtained from the patient after discussion of the indications, limitations,alternatives, benefits, and risks of the procedure. Risksspecifically discussed include but are not limited to medication reactions, missed lesions, bleeding, perforation, orthe need for emergent surgery. Throughout the procedure, the patient's blood pressure, pulse, end-tidal CO2, and oxygen saturations were monitored continuously. The Olympus adult variable colonoscope CF-[id number] #7 was introduced through the anus and advanced to the cecum, identified by the appendiceal orifice, ileocecal valveand palpation. The colonoscopy was somewhat difficult dueto inadequate bowel prep. The patient tolerated theprocedure fairly well. The quality of the bowel preparation was evaluated using the BBPS ([place] Bowel PreparationScale) with scores of: Right Colon = 1 (portion of mucosaseen, but other areas not well seen due to staining, residual stool and/or opaque liquid), Transverse Colon = 1(portion of mucosa seen, but other areas not well seen due to staining, residual stool and/or opaque liquid) and Left Colon = 1 (portion of mucosa seen, but other areas not well seen due to staining, residual stool and/or opaque liquid). The total BBPS score equals 3. The quality ofthe bowel preparation was inadequate. Complications: No immediate complications. Estimated blood loss:None. Findings: The perianal and digital rectal examinations werenormal. Pertinent negatives include normal sphincter tone. A few small-mouthed diverticula were found in the descending colon. Extensive amounts of semi-liquid semi-solid stool was found in the entire colon, interfering withvisualization. The exam was otherwise without abnormality on directand retroflexion views. Impression: - Preparation of the colon was inadequate. - Diverticulosis in the descending colon. - Stool in the entire examined colon. - The examination was otherwise normal on direct and retroflexion views. - No specimens collected. Recommendation: - Repeat colonoscopy in 1 year because the bowel preparation was suboptimal with a 2 day prep. HECTOR ARELLANO MD 02/03/2019 8:00:49 AM This report has been signed electronically. Number of Addenda: 0 Note Initiated On: 02/03/2019 7:15 AM Procedure Code(s): --- Professional --- 35356, Colonoscopy, flexible; diagnostic, including collection of specimen(s) by brushing or washing, when performed (separateprocedure) --- Technical --- 73726, Colonoscopy, flexible; diagnostic, including collection of specimen(s) by brushing or washing, when performed (separateprocedure) Diagnosis Code(s): --- Professional --- Z12.11, Encounter for screening for malignant neoplasm of colon K57.30, Diverticulosis of large intestine without perforation orabscess without bleeding --- Technical --- Z12.11, Encounter for screening for malignant neoplasm of colon K57.30, Diverticulosis of large intestine without perforation orabscess without bleeding CPT copyright 2018 [employer]. All rights reserved. The codes documented in this report are preliminary and upon help desk internship reviewmay be revised to meet current compliance requirements. [address] [place] [id number] Alfredo Wynne MD GI PROCEDURE ORDERABLES F inal Result from Last 3 Months or Most Recently Relevant to Health Maintenance Insurance [place] [id number] [place] [address] [place] [id number] [place] [address] [place] [address] [place] [address] [place] [address] [place] [address] [place] [address] [place] [address] [facility] [address] Care Teams Cath Lab Radiological Technologist Relationship Specialty Start Date End Date Alfredo Wynne MD PCP - General Internal Medicine 12/24/18 Additional Source Comments The information contained in this document represents components of the legal health record. It is not the complete legal health record.[facility]
--- OUTSIDE RECORDS SUMMARY | 2024-11-13 10:13 | XMS_ITS | Patient Health Record ---
Author Organization [facility] Address [address] [facility] [place] [address] Care Team Providers Care Calender Operator Name Role Phone Alfredo Wynne MD Primary Care Provider Unavailab Yolanda Dias Unavailable [phone] Reason For Referral No Information Medications Medication SIG (Take, Route, Frequency, Duration) Notes Start Date End Date Status Cymbalta 125mg Activ e Urea-C40 40 % 1 application to affected area as needed Externally Once a day; Duration: 30 days 05/01/2018 Active Womens Multivitamin Active Low-Dose Aspirin 81mg daily Active metFORMIN HCl 1000 MG 1 tablet with a me al Orally Once a day; Duration: 30 day(s) Active fentaNYL 25 MCG/HR 1 patch to skin Transdermal Not-Taking vitamin D Active Iron Supplement Acti ve Vitamin B 12 Active Atenolol 25 MG 1 tablet Orally Once a day; Duration: 30 day(s) Active PriLOSEC 25mg Active Venlafaxine HCl Acti ve Pravastatin Sodium 10 MG 1 tablet Orally Once a day; Duration: 30 day(s) Active Immunizations Vaccine Route Administration Date Status Comme nts Influenza Unknown 10/23/2017 Administered Social History Tobacco Use: Social History Observation Description Date Details (start date - stop date) Former Smoker NA - NA Tobacco Use/Smoking Question Answer Notes Are you a: former smoker Additional Findings: Tobacco Non-User Current no n-smoker Alcohol Screen Question Answer Notes Did you have a drink containing alcohol in the p ast year? No Points 0 Interpretation Negative Tobacco use other than smoking: Question Answer Notes Are you an other tobacco user? No Problems Problem Type SNOMED Code ICD Code Onset Dates Problem Status W/U Status Risk Notes Problem Polyneuropathy due to type 2 diabetes mellitus (887677173) Type 2 diabetes mellitus with diabetic polyneuropathy (E11.42) Active confirmed Plan Of Treatment Pending Test Test Name Order Date [id number] NAIL, 6 OR MORE 05/01/2018 [id number] NAIL, 6 OR MORE 07/17/2018 [id number] SKIN LESIONS, OVER 4 07/18/19 [id number] SKIN LESIONS, OVER 4 05/01/1950,[id number] TENDON SHEATH/LIGAMENT 0 05/01/201803114,[id number] TENDON SHEATH/LIGAMENT 0 06/12/201817901,[id number] TENDON SHEATH/LIGAMENT 0 07/17/2018 Insurance Providers Payer Name Payer Address Payer Phone Subscriber Number Group Number Insured Name Patient Relationship to Insured Coverage Start Date Coverage End Date Claims [facility] [employer] [address] [address] [place] [address] [id number] Dorothea Ibarra Self - patient is the insured Medical (General) History Medical History History ICD Code Anemia Anxiety Arthritis Back,Hip,and Knee pain Cholesterol Depression Diabetic High blood pressure Numbness Reflux ( GERD) Sciatica Surgical History Surgery Date(Month/Year) arthritis in thumb both hands 2015, 2016
--- NOTE | 2024-11-13 10:15 | MHC.OFFVIS ---
Vital Signs 11/13/24 10:17 Height 5 ft 4 in Weight 210 lb BMI 36.0 BP 132/79 Blood Pressure Location Lt brachial Position Sitting Respiration 16 Pulse 82 Pulse Source Pulse Oximeter Pulse Oximetry (%) 95 Oxygen Delivery Method Room Air Intake Visit Reasons: Ongoing back pain/follow up with Dr Syed. Life Trainer Required: No Accompanied by: Spouse Allergies No Known Allergies (No Known Allergies*) Allergy (Verified 11/13/24 10:18) Medication List - Last Reconciled 11/13/24 by Karina Sandhu LPN atenolol 25 mg PO DAILY bupropion HCl XL 300 mg PO DAILY buspirone 10 mg PO BID carisoprodol 350 mg PO TID duloxetine 120 mg PO DAILY meloxicam 15 mg PO DAILY metformin 500 mg PO DAILY omeprazole 20 mg PO DAILY pravastatin 40 mg PO DAILY prazosin 1 mg PO BEDTIME pregabalin 75 mg PO TID vitamin B complex 1 tab PO DAILY HPI HPI Ongoing back pain/follow up with Dr Syed.: Details: History of Present Illness The patient is a 59-year-old female presenting with chronic back pain. She reports a history of scoliosis diagnosed during grade school, which was not followed up on, and sciatica that began during her in 1995. The back pain is described as severe, with a 9/10 intensity, and is exacerbated by movement and weather changes. The patient has undergone multiple interventions, including cervical spine surgery (ACDF) in June 2023, which provided some relief but did not resolve her neck pain completely. She has also had multiple surgeries on her hands and injections in various joints, including her shoulder, hands, back, and hips. Despite these interventions, she continues to experience significant pain and functional limitations, including difficulty carrying objects and frequent falls. The patient has tried various pain management strategies, including physical therapy, massage therapy, cortisone injections, and home traction units, all of which provided only temporary relief. She is currently on Lyrica for nerve pain and meloxicam for inflammation, but reports persistent daily pain. Her pain significantly interferes with her daily activities and quality of life, leading to emotional distress. Pain Description - Onset: Chronic, with a history of scoliosis and sciatica - Quality: Severe, stabbing pain - Location: Lower back, radiating to legs and arms - Exacerbating factors: Movement, weather changes - Relieving factors: Temporary relief from physical therapy, massage, and cortisone injections - Interference: Affects sleep, daily activities, and ability to care for herself Physical Exam - Musculoskeletal: Positive straight leg raise bilaterally Results - Imaging: MRI showing lumbar spondylolisthesis at L4-5 with nerve root compression Pain Management - Affect: Pain causes emotional distress and impacts quality of life - Analgesia: Currently on Lyrica and meloxicam, with persistent daily pain - Adverse Effects: No specific adverse effects reported from current medications - Activities of Daily Living: Pain interferes with sleep and daily activities - Aberrant Drug Related Behaviors: No aberrant behaviors reported [facility] Medical History (Updated 11/17/24 @ 11:51 by Leandro Syed MD) Weakness Vitamin B12 deficiency Sleepwalking disorder RBD (REM behavioral disorder) Post herpetic neuralgia Sleep apnea Obese Back pain senior living prescription opiate use Hypersomnia with sleep apnea Hypercholesteremia Former smoker DDD (degenerative disc disease), lumbar Chronic pain syndrome Spinal stenosis in cervical region Cervical radiculopathy Adjustment disorder with mixed emotional features Arthritis History of DVT (deep vein thrombosis) (~1997) Frequent falls Ambulates with cane Numbness and tingling in both hands Elevated cholesterol HTN (hypertension) Depression Chronic pain Diabetes Surgical History (Updated 07/18/23 @ 10:22 by MASOUD Penny) Hx of colonoscopy Hx of hand surgery History of bilateral carpal tunnel release Social History Are you a primary resident care assistant to a significant other at home: No Do you presently have visiting nurse or other home services: No Patient Tobacco Use Status: Former Tobacco user Physical Exam Vital Signs: Last Vital Signs Pulse 82 11/13/24 10:17 Resp 16 11/13/24 10:17 BP 132/79 11/13/24 10:17 Pulse Ox 95 11/13/24 10:17 Oxygen Delivery Method Room Air 11/13/24 10:17 BMI result Body Mass Index 36.0 Assessment & Plan Assessment & Plan (1) Lumbar radicular pain: Code(s): M54.16 - Radiculopathy, lumbar region Category: Medical Plan Plan - Schedule L4-5 intralaminar epidural steroid injection for lumbar spondylolisthesis and nerve root compression. - Consider lumbar medial branch blocks if epidural steroid injection does not provide sufficient relief. - Prescribe nabumetone 500 mg twice daily as an alternative to meloxicam. - Continue Lyrica for nerve pain management. - Advise against taking nabumetone three days prior to the scheduled injection. Patient was informed and verbally consented to the use of an ambient scribe for clinic note documentation during this visit. Discussion Notes I discussed with the patient the option of an L4-5 intralaminar epidural steroid injection to address her lumbar spondylolisthesis and nerve root compression. We also considered lumbar medial branch blocks if the epidural injection does not provide adequate relief. I explained the need to avoid nabumetone three days before the injection and discussed the continuation of Lyrica for nerve pain management. Patient Instructions - Schedule and attend the L4-5 epidural steroid injection appointment. - Do not take nabumetone three days before the injection. - Continue taking Lyrica as prescribed for nerve pain. - Monitor pain levels and report any changes or concerns. Medications: New nabumetone 500 mg PO BID 60 tabs 0RF Coding Level of Care Code New Pt Level 4 (34608) Diagnoses Lumbar radicular pain M54.16
[2024-11-13 10:17] VITALS: BP 132/79; PULSE 82; RESP 16; O2SAT 95; BMI 36.0
== END 2024-11-13 10:53 | disposition home or self-care (01) ==
LOC: HO.PMC 10:09
PROVIDERS: PCP Nurse Practitioner Family; Visit Provider Internal Medicine
DX: M54.16 Radiculopathy, lumbar region (principal)
CPT/HCPCS: 99204

== ENCOUNTER → 2024-11-13 10:09 | Outpatient (BNVA) | payer OTHER, SELFPAY | PROVIDERS: PCP Nurse Practitioner Family; Visit Provider Internal Medicine | DX: M54.16 Radiculopathy, lumbar region (principal) | CPT/HCPCS: 99202 ==

== ENCOUNTER 2025-01-14 06:18 | Outpatient (REF) | payer OTHER, SELFPAY ==
--- NOTE | ~2025-01-14 | FL_ITS ---
EXAMINATION: FL GUIDANCE ONLY HISTORY: M54.16 - Radiculopathy, lumbar region COMPARISON: None available. TECHNIQUE: Fluoroscopy time: 0.1 minute. Cumulative Dose: 3.30 mGy. DAP: 36.52 uGym2 Images: 1. FINDINGS: A single fluoroscopic spot film of the lumbar spine in the AP projection demonstrates a needle in place at approximately the L4-5 level. FL/FL guidance in treatment room IMPRESSION: Fluoroscopy during procedure. Please see procedure report for additional information. Electronically signed by: Del Pastrana MD 01/14/2025 03:12 PM EDT
--- OUTSIDE RECORDS SUMMARY | 2025-01-14 06:20 | XMS_ITS | Encounter Summary ---
Author Organization [facility] Address [address] [place] [address] Phone Care Team Providers Care Coat Finisher Name Role Phone Alfredo Wynne MD Primary Care Provider [phone] Encounter Details Date Type Department Care Team (Late st Contact Info) Description 02/03/2019 Procedure Pass [facility] Endoscopy Admitting Dept Virtual Department [address] [place] [address] Social History Tobacco Use Types Packs/Day Years Used Date Smoking Tobacco: Former Cigarettes 1 20 Smokeless Tobacco: Never Alcohol Use Standard Drinks/Week Comments Not Currently 0 (1 standard drink = 0.6 oz pur e alcohol) Comments No Sex and Gender Information Value Date Recorded Sex Assigned at Not on file Legal Sex Female 12:49 PM EDT Gender Identity Not on file Sexual Orientation Not on file documented as of this encounter Plan of Treatment Not on file documented as of this encounter Visit Diagnoses Not on filedocumented in this encounter Care Teams Coat Finisher Relationship Specialty Start Date End Date Alfredo Wynne MD PCP - General Internal Medicine 12/24/18 documented as of this encounter Additional Source Comments The information contained in this document represents components of the legal health record. It is not the complete legal health record.[facility]
--- OUTSIDE RECORDS SUMMARY | 2025-01-14 06:20 | XMS_ITS | Clinical Summary ---
Author Organization [facility] Address [address] [place] [address] Phone Care Team Providers Care Tobacco Sorter Name Role Phone Alfredo Wynne MD Primary Care Provider [phone] Allergies Active Allergy Reactions Criticality Noted Date Comments Fentanyl 01/29/2019 Does not like the way it makes her feel, was topical delivery, patch Medications atenolol (TENORMIN) 25 MG tablet Take 25 mg by mouth daily. Active Ca cit-D3-mag#11-z zhl-rugs-hcj-iam r (CALTRATE 600+D) 600 mg calcium- 800 [...] for pain (specific location in comments). {PARTIAL FILL:57560} Active Social History Tobacco Use Types Packs/Day [...] ZOSTER VACCINES (2 of 2) 01/22/2018 11/27/2017 INFLUENZA VACCINE (#1) 2024 11/27/2017 COVID-19 VACCINE (2 - 2024-2 6 season) 2024 06/15/2020 COLONOSCOPY 02/03/2029 02/03/2019 COLORECTAL CANCER SCREENING 02/03/2029 RSV VACCINE (1 - 1-dose 75+ series) 2042 HEPATITIS A VACCINES Aged Out No long [...] 02/03/2019 7:15 AM EST Patient Name: Dorothea Crespo MD:: HECTOR ARELLANO MD Procedure Date: 02/03/2019 7:15 AM Date of : 1965 Age: 54 Admit Type: Outpatient Gender: Female Room: [place] [address] Referring MD: Alfredo Wynne MD Exam Type: [...] monitored continuously. The Olympus adult variable colonoscope [id number] #7 was introduced through the anus and advanced to the cecum, identified by the appendiceal orifice, ileocecal valveand palpation. The colonoscopy was somewhat difficult dueto inadequate bowel prep. The patient tolerated theprocedure fairly well. The quality of the bowel preparation was evaluated using the BBPS ([place] Bowel PreparationScale) with scores of: Right Colon [...] 7:15 AM Procedure Code(s): --- Professional --- 35430, Colonoscopy, flexible; diagnostic, including collection of specimen(s) by brushing or washing, when performed (separateprocedure) --- Technical --- 65245, Colonoscopy, flexible; diagnostic, including collection of specimen(s) by brushing or washing, when performed (separateprocedure) Diagnosis Code(s): --- Professional --- Z12.11, Encounter for screening for malignant neoplasm of colon K57.30, Diverticulosis of large intestine without perforation orabscess without bleeding --- Technical --- Z12.11, Encounter for screening for malignant neoplasm of colon K57.30, Diverticulosis of large intestine without perforation orabscess without bleeding CPT copyright 2018 [employer]. All rights reserved. The codes documented in this report are preliminary and upon locomotive pipe fitter reviewmay be revised to meet current compliance requirements. [address] [place] [address] Alfredo Wynne MD GI PROCEDURE ORDERABLES F inal Result from Last 3 Months or Most Recently Relevant to Health Maintenance [place] [address] [place] [address] [place] [address] [place] [address] [place] [address] [place] [address] [place] [id number] [place] [address] [place] [address] Care Teams Tobacco Sorter Relationship Specialty Start Date End Date Alfredo Wynne MD PCP - General Internal Medicine 12/24/18 Additional Source Comments The information contained in this document represents components of the legal health record. It is not the complete legal health record.[facility]
== END 2025-01-14 06:19 | disposition home or self-care (01) ==
LOC: CF 06:18
PROVIDERS: Visit Provider Internal Medicine
DX: M54.16 Radiculopathy, lumbar region (principal)
CPT/HCPCS: 62321; J2003; J3301; Q9967

== ENCOUNTER 2025-01-14 10:30 | Outpatient (AMB) | payer OTHER, SELFPAY ==
[2025-01-14 10:43] VITALS: BP 112/68; PULSE 76; RESP 16; O2SAT 94
--- NOTE | 2025-01-14 10:43 | MHC.OFFVIS ---
Vital Signs 01/14/25 10:43 01/14/25 11:49 BP 112/68 110/70 Blood Pressure Location Lt brachial Lt brachial Position Sitting Sitting Respiration 16 16 Pulse 76 73 Pulse Source Pulse Oximeter Pulse Oximeter Pulse Oximetry (%) 94 95 Oxygen Delivery Method Room Air Room Air Intake Visit Reasons: L4-L5 Interlaminar [place] Accompanied by: Spouse Allergies No Known Allergies (No Known Allergies*) Allergy (Verified 01/14/25 10:44) Medication List - Last Reconciled 01/14/25 by Karina Sandhu LPN atenolol 25 mg PO DAILY bupropion HCl XL 300 mg PO DAILY buspirone 10 mg PO BID carisoprodol 350 mg PO TID duloxetine 120 mg PO DAILY metformin 500 mg PO DAILY nabumetone 500 mg PO BID omeprazole 20 mg PO DAILY pravastatin 40 mg PO DAILY prazosin 1 mg PO BEDTIME pregabalin 75 mg PO TID vitamin B complex 1 tab PO DAILY HPI HPI L4-L5 Interlaminar [place]: Details: Patient presents for scheduled procedure. Denies any recent cough, cold, infection, fever or other significant changes in medical history since last office visit. [facility] Medical History (Updated 11/17/24 @ 11:51 by Leandro Syed MD) Weakness Vitamin B12 deficiency Sleepwalking disorder RBD (REM behavioral disorder) Post herpetic neuralgia Sleep apnea Obese Back pain penitentiary prescription opiate use Hypersomnia with sleep apnea Hypercholesteremia Former smoker DDD (degenerative disc disease), lumbar Chronic pain syndrome Spinal stenosis in cervical region Cervical radiculopathy Adjustment disorder with mixed emotional features Arthritis History of DVT (deep vein thrombosis) (~1997) Frequent falls Ambulates with cane Numbness and tingling in both hands Elevated cholesterol HTN (hypertension) Depression Chronic pain Diabetes Surgical History (Updated 07/18/23 @ 10:22 by MASOUD Penny) Hx of colonoscopy Hx of hand surgery History of bilateral carpal tunnel release Social History Are you a primary health care coach to a significant other at home: No Do you presently have visiting nurse or other home services: No Patient Tobacco Use Status: Former Tobacco user Physical Exam Vital Signs: Last Vital Signs Pulse 73 01/14/25 11:49 Resp 16 01/14/25 11:49 BP 110/70 01/14/25 11:49 Pulse Ox 95 01/14/25 11:49 Oxygen Delivery Method Room Air 01/14/25 11:49 Office Procedures AMB Joint Injection/Aspiration Joint Injection/Aspiration Details: Interlaminar epidural steroid injection, L4/5, Left parasaggital After obtaining written consent, pre-procedure blood pressure and heart rate were stable and recorded in the nursing record. The patient was placed in the prone position. The lumbar area was widely prepped with chloraprep and draped in sterile fashion. Fluoroscopic guidance was used to identify the desired interlaminar space and for needle placement. Subcutaneous 0.5% lidocaine was used to anesthetize the skin overlying the target. A 20-gauge Busby needle was advanced to the epidural space using loss of resistance to saline technique under fluoroscopic AP and contralateral oblique views. There was no evidence of heme or CSF and no paresthesias were elicited with needle placement. Confirmation of epidural needle placement was performed with 1cc of omnipaque 180. Next 3 ml 0.5% lidocaine mixed with 80 mg triamcinilone was administered epidurally with no pain elicited on injection. The needle tract tubing was then cleared with 1 ml of 0.5% lidocaine. The needle was removed, skin cleansed and a sterile bandage was applied. The patient tolerated the procedure well and no complications were encountered. Following the procedure the patient's vital signs were stable. The patient was discharged home in good condition with post-procedural instructions. Time Out: Immediately prior to the procedure, the following was verbally confirmed that there is a signed consent form and that the correct patient, planned procedure, site and side are consistent with documentation and that necessary equipment and/or blood products are available prior to the start of the case. Complications: none EBL: <2 cc Coding 60053 - Caudal/Lumbar Epidural/Interlaminar with fluoroscopy Procedure code (CPT) selection complete Assessment & Plan Assessment & Plan (1) Lumbar radicular pain: Code(s): M54.16 - Radiculopathy, lumbar region Category: Medical Plan Patient is status post left parasagittal L4-5 interlaminar [place]. Patient tolerated procedure well and was discharged home in stable condition with discharge instructions. All questions were answered. We will follow-up via telephone or in clinic to assess response to therapy. A follow-up appointment was made during today's visit. Orders: Orders AMB Joint Injection/Aspiration Today Leandro Syed MD M54.16 - Radiculopathy, lumbar region FL guidance in treatment room Today Dayanna Davila APRN, LINK TRAINER MAINTENANCE MAN M54.16 - Radiculopathy, lumbar region Coding Level of Care Code Procedure Only Diagnoses Lumbar radicular pain M54.16 CPT Codes Coding - Joint 11: 54601 - Caudal/Lumbar Epidural/Interlaminar with fluoroscopy ([id number])
[2025-01-14 11:49] VITALS: BP 110/70; PULSE 73; RESP 16; O2SAT 95
== END 2025-01-14 11:50 | disposition home or self-care (01) ==
LOC: HO.PMCPRC 10:30
PROVIDERS: PCP Nurse Practitioner Family; Visit Provider Internal Medicine
DX: M54.16 Radiculopathy, lumbar region (principal)
CPT/HCPCS: 62321

== ENCOUNTER 2025-03-17 10:48 | Outpatient (AMB) | payer OTHER, SELFPAY ==
--- OUTSIDE RECORDS SUMMARY | 2025-03-17 10:52 | XMS_ITS | Encounter Summary ---
Author Organization [facility] Address [address] [place] [address] Phone Care Team Providers Care International Recruiter Name Role Phone Alfredo Wynne MD Primary Care Provider [phone] Encounter Details Date Type Department Care Team (Late st Contact Info) Description 02/03/2019 Procedure Pass [facility] Endoscopy Admitting Dept Virtual Department [address] [place] [address] Social History Tobacco Use Types Packs/Day Years [...] on filedocumented in this encounter Care Teams International Recruiter Relationship Specialty Start Date End Date Alfredo Wynne MD PCP - General Internal Medicine 12/24/18 documented as of this encounter Additional Source Comments The information contained in this document represents components of the legal health record. It is not the complete legal health record.[facility]
--- OUTSIDE RECORDS SUMMARY | 2025-03-17 10:52 | XMS_ITS | Clinical Summary ---
Author Organization [facility] Address [address] [place] [address] Phone Care Team Providers Care Asp Developer Name Role Phone Alfredo Wynne MD Primary Care Provider [phone] Allergies Active Allergy Reactions Criticality Noted Date Comments Fentanyl 01/29/2019 Does not like the way it makes her feel, was topical delivery, patch Medications atenolol (TENORMIN) 25 MG tablet Take 25 mg by mouth daily. Active Ca cit-D3-mag#11-z mvw-bhjj-sww-iam r (CALTRATE 600+D) 600 mg calcium- 800 [...] for pain (specific location in comments). {PARTIAL FILL:05811} Active Social History Tobacco Use Types Packs/Day [...] 54 Admit Type: Outpatient Gender: Female Room: [place] [address] Referring MD: Alfredo Wynne MD Exam Type: [...] monitored continuously. The Olympus adult variable colonoscope [id number] #7 was introduced through the anus and advanced to the cecum, identified by the appendiceal orifice, ileocecal valveand palpation. The colonoscopy was somewhat difficult dueto inadequate bowel prep. The patient tolerated theprocedure fairly well. The quality of the bowel preparation was evaluated using the BBPS ([place] Bowel PreparationScale) with scores of: Right Colon [...] 7:15 AM Procedure Code(s): --- Professional --- 55508, Colonoscopy, flexible; diagnostic, including collection of specimen(s) by brushing or washing, when performed (separateprocedure) --- Technical --- 15239, Colonoscopy, flexible; diagnostic, including collection of specimen(s) by brushing or washing, when performed (separateprocedure) Diagnosis Code(s): --- Professional --- Z12.11, Encounter for screening for malignant neoplasm of colon K57.30, Diverticulosis of large intestine without perforation orabscess without bleeding --- Technical --- Z12.11, Encounter for screening for malignant neoplasm of colon K57.30, Diverticulosis of large intestine without perforation orabscess without bleeding CPT copyright 2018 [employer]. All rights reserved. The codes documented in this report are preliminary and upon inpatient coder reviewmay be revised to meet current compliance requirements. [address] [place] [address] Alfredo Wynne MD GI PROCEDURE ORDERABLES F inal Result from Last 3 Months or Most Recently Relevant to [place] [address] [place] [address] [place] [address] [place] [address] [place] [address] [place] [address] [place] [id number] [place] [address] [place] [address] Care Teams Asp Developer Relationship Specialty Start Date End Date Alfredo Wynne MD PCP - General Internal Medicine 12/24/18 Additional Source Comments The information contained in this document represents components of the legal health record. It is not the complete legal health record.[facility]
--- OUTSIDE RECORDS SUMMARY | 2025-03-17 10:52 | XMS_ITS | Patient Health Record ---
Author Organization [facility] Address [address] [facility] [place] [address] Care Team Providers Care Security Flex Utility Officer Name Role Phone Alfredo Wynne MD Primary Care Provider Unavailab Yolanda Dias Unavailable [phone] Reason For Referral No Information Medications Medication [...] Polyneuropathy due to type 2 diabetes mellitus ([id number]) Type 2 diabetes mellitus with diabetic polyneuropathy (E11.42) Active confirmed Plan Of Treatment Pending Test Test Name Order Date [id number] NAIL, 6 OR MORE 05/01/2018 [id number] NAIL, 6 OR MORE 07/17/2018 [id number] SKIN LESIONS, OVER 4 07/18/19 [id number] SKIN LESIONS, OVER 4 05/01/1950,[id number] TENDON SHEATH/LIGAMENT 0 05/01/201810057,[id number] TENDON SHEATH/LIGAMENT 0 06/12/201883705,[id number] TENDON SHEATH/LIGAMENT 0 07/17/2018 Insurance Providers Payer Name Payer Address Payer Phone Subscriber Number Group Number Insured Name Patient Relationship to Insured Coverage Start Date Coverage End Date Claims [facility] [employer] [address] [address] [place] [address] [id number] Dorothea Ibarra Self - patient is the insured Medical (General) History Medical History History ICD Code Anemia Anxiety Arthritis Back,Hip,and Knee pain Cholesterol Depression Diabetic High blood pressure Numbness Reflux ( GERD) Sciatica Surgical History Surgery Date(Month/Year) arthritis in thumb both hands 2015, 2016
[2025-03-17 10:54] VITALS: BP 141/81; PULSE 74; RESP 16; O2SAT 93; BMI 36.0
--- NOTE | 2025-03-17 10:54 | MHC.OFFVIS ---
Vital Signs 03/17/25 10:54 Height 5 ft 4 in Weight 210 lb BMI 36.0 BP 141/81 H Blood Pressure Location Lt brachial Position Sitting Respiration 16 Pulse 74 Pulse Source Pulse Oximeter Pulse Oximetry (%) 93 Oxygen Delivery Method Room Air Intake Visit Reasons: Follow up from cortisone shot, ongoing pain. 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 Accompanied by: Spouse Allergies No Known Allergies (No Known Allergies*) Allergy (Verified 03/17/25 10:55) Medication List - Last Reconciled 03/17/25 by Karina Sandhu LPN atenolol 25 mg PO DAILY bupropion HCl XL 300 mg PO DAILY buspirone 10 mg PO BID carisoprodol 350 mg PO TID duloxetine 120 mg PO DAILY metformin 500 mg PO DAILY nabumetone 500 mg PO BID omeprazole 20 mg PO DAILY pravastatin 40 mg PO DAILY prazosin 1 mg PO BEDTIME pregabalin 75 mg PO TID vitamin B complex 1 tab PO DAILY HPI HPI Follow up from cortisone shot, ongoing pain.: Details: History of Present Illness The patient is a 60 year old female presenting for follow-up after a recent L4-5 epidural steroid injection for lumbar radicular pain. She reports that the injection provided complete pain relief for six days, but her symptoms have since returned to baseline. She describes pain primarily in the left lower back, with symptoms affecting both legs. The patient has a 30-year history of back problems, which began with sciatica during . She notes that her pain persists regardless of weight fluctuations and is aggravated by prolonged sitting or standing. Past interventions include various injections in her shoulder and hip, and she has a vague recollection of a possible sacroiliac joint injection. She uses topical pain lotions and creams, such as Biofreeze, at home. The patient also reports experiencing neck pain, which is worse upon waking in the morning and sometimes disturbs her sleep. She has had a lumbar MRI in the past, believed to be done at [facility] last year, as well as a prior neck MRI. Pain Description - Onset and Duration: The patient has experienced chronic back pain for 30 years, which started during . - Location: Pain is primarily located in the left lower back and also affects both legs, hip, and neck. - Character: The pain is described as radicular and as a pulling sensation. - Exacerbating Factors: Pain is worsened by bending backward, leaning forward (which causes it to radiate down the leg), prolonged sitting, and prolonged standing. - Relieving Factors: A recent L4-5 epidural steroid injection provided six days of pain relief. - Interference with Function: Neck pain sometimes keeps her up at night, and back pain limits her ability to sit or stand for long periods. Physical Exam - Back: Tenderness to palpation over the left lower back and left sacroiliac joint. - Range of Motion: Lumbar extension is limited and elicits left-sided back pain. - Lumbar flexion causes pain to radiate down the leg. - Special Tests: Left FLAQUITA test is positive for back and hip pain. - Left SI joint compression and thruster tests are positive. Results - MRI Lumbar Spine: A prior MRI was reportedly performed at [facility] last year; images and report were not available for review. Pain Management: - Analgesia: The patient received a recent L4-5 epidural steroid injection, which provided 6 days of complete pain relief. - She has also tried various topical pain lotions and creams, including Biofreeze. - Affect: The patient expresses frustration with her chronic pain, having dealt with it for 30 years. - Activities of Daily Living: Her pain limits her ability to sit or stand for prolonged periods. - Neck pain can also interfere with her sleep. 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 use Hypersomnia with sleep apnea Hypercholesteremia Former smoker DDD (degenerative disc disease), lumbar Chronic pain syndrome Spinal stenosis in cervical region Cervical radiculopathy Adjustment disorder with mixed emotional features Arthritis History of DVT (deep vein thrombosis) (~1997) Frequent falls Ambulates with cane Numbness and tingling in both hands Elevated cholesterol HTN (hypertension) Depression Chronic pain Diabetes Surgical History (Updated 07/18/23 @ 10:22 by MASOUD Penny) Hx of colonoscopy Hx of hand surgery History of bilateral carpal tunnel release Social History Are you a primary direct care specialist to a significant other at home: No Do you presently have visiting nurse or other home services: No Patient Tobacco Use Status: Former Tobacco user Physical Exam Vital Signs: Last Vital Signs Pulse 74 03/17/25 10:54 Resp 16 03/17/25 10:54 BP 141/81 H 03/17/25 10:54 Pulse Ox 93 03/17/25 10:54 Oxygen Delivery Method Room Air 03/17/25 10:54 BMI result Body Mass Index 36.0 Assessment & Plan Assessment & Plan (1) Chronic SI joint pain: Code(s): M53.3 - Sacrococcygeal disorders, not elsewhere classified; G89.29 - Other chronic pain Category: Medical (2) Lumbar spondylosis: Code(s): M47.816 - Spondylosis without myelopathy or radiculopathy, lumbar region Category: Medical Plan Plan Patient was informed and verbally consented to the use of an ambient scribe for clinic note documentation during this visit. 1. Lumbar Radiculopathy - The patient's temporary (6-day) relief from recent L4-5 [place]. - The plan includes obtaining and reviewing her lumbar spine MRI from last year to better assess the underlying anatomy. - Further interventions will be considered after reviewing the MRI and assessing her response to a planned sacroiliac joint injection. 2. Sacroiliac Joint Dysfunction - Physical exam findings, including tenderness over the left SI joint and positive provocative maneuvers (FLAQUITA, compression, thrust), are highly suggestive of SI joint mediated pain. - Authorization for a left therapeutic sacroiliac joint injection will be sought. - This procedure will serve as both a diagnostic and therapeutic intervention while awaiting review of her lumbar MRI. 3. Lumbar Spondylosis - This is considered a differential diagnosis, particularly given the patient's report of pain with extension and facet loading noted on exam. - Review of the lumbar spine MRI is crucial to evaluate for degenerative changes, including spondylosis and potential spondylolisthesis, before considering further interventions such as medial branch blocks. Discussion Notes I discussed with the patient that her recent epidural steroid injection provided only temporary relief. I explained that to determine the best long-term solution, we need to review her lumbar spine MRI, which was likely done at [facility] last year. Based on her physical exam findings, which are highly suggestive of sacroiliac (SI) joint pain, I recommended we proceed with a left therapeutic SI joint injection in the meantime. We will reassess her symptoms after the SI joint injection and after reviewing the MRI to determine the next steps in her treatment plan. The patient expressed understanding and agreed with this plan. Patient Instructions - Please contact [facility] to request that a copy of your lumbar spine MRI from last year be mailed to our office. - Our office will contact you to schedule a left sacroiliac (SI) joint injection. - We will follow up to discuss the results of the injection and your MRI scan to determine the next steps. Coding Level of Care Code Est Pt Level 3 (63257) Diagnoses Chronic SI joint pain M53.3; G89.29 Lumbar spondylosis M47.816
== END 2025-03-17 11:32 | disposition home or self-care (01) ==
LOC: HO.PMC 10:49
PROVIDERS: PCP Nurse Practitioner Family; Visit Provider Internal Medicine
DX: M53.3 Sacrococcygeal disorders, not elsewhere classified (principal); G89.29 Other chronic pain; M47.816 Spondylosis without myelopathy or radiculopathy, lumbar region
CPT/HCPCS: 99213

== ENCOUNTER → 2025-03-17 10:48 | Outpatient (BNVA) | payer OTHER, SELFPAY | PROVIDERS: PCP Nurse Practitioner Family; Visit Provider Internal Medicine | DX: M47.816 Spondylosis without myelopathy or radiculopathy, lumbar region (principal); M53.3 Sacrococcygeal disorders, not elsewhere classified; G89.29 Other chronic pain | CPT/HCPCS: 99212 ==